=== PATIENT | male | born 1970 | race Caucasian/White ===

== ENCOUNTER 2019-08-09 13:45 | Emergency (ER) | payer MEDICAID, OTHER ==
[2019-08-09 15:57] VITALS: BP 152/92
--- NOTE | 2019-08-09 18:20 | ED ---
Medical Screening - HPI Summary HPI Summary: Patient is a 49-year-old male who presents emergency department for reevaluation of a pelvic fracture and right wrist fracture. Patient states he just returned from [place] where he was visiting his parents. Patient states he believes he was sleepwalking when he fell down a flight of steps. Patient awoke with pelvic pain and right wrist pain. Patient states he was seen in a local hospital and diagnosed with a pubic ramus fracture and right wrist fracture. Patient was admitted admitted and signed out with concerns of covering cost of admission. Patient resides in [place] and presents to the ER for orthopedic referral and pain medication. Patient denies fever, chills, chest pain, shortness of breath, numbness, tingling or weakness. Symptoms are mild in severity. Movement makes symptoms worse. Nothing makes symptoms better. Patient has discharge packet from [facility] with him in the ER today including imaging reports and CT disc. - History of Current Complaint Chief Complaint: EDGeneral Stated Complaint: RECHECK INJURYS PER PT Time Seen by Provider: 08/09/19 14:59 PMH/Surg Hx/FS Hx/Imm Hx Previously Healthy: Yes Endocrine/Hematology History: Denies: Hx Anticoagulant Therapy Infectious Disease History: No Infectious Disease History: Denies: Traveled Outside the [place] in Last 30 Days - Family History Known Family History: Positive: Non-Contributory - Social History Occupation: Employed Full-time Lives: With Family Alcohol Use: Daily Alcohol Amount: "SMALL AMOUNTS DAILY" PT STATES Substance Use Type: Reports: None Smoking Status (MU): Current Every Day Smoker Review of Systems Constitutional: Negative Cardiovascular: Negative Negative: Chest Pain Respiratory: Negative Negative: Shortness Of Breath Gastrointestinal: Negative Negative: Abdominal Pain Positive: Other - right wrist and pelvic pain Neurological: Negative All Other Systems Reviewed And Are Negative: Yes Physical Exam Triage Information Reviewed: Yes Vital Signs On Initial Exam: Initial Vitals Temp Pulse Resp BP Pulse Ox 99.5 F 95 16 139/101 97 08/09/19 13:49 08/09/19 13:49 08/09/19 13:49 08/09/19 13:49 08/09/19 13:49 Vital Signs Reviewed: Yes Appearance: Positive: Well-Appearing - Pt. sitting on chair in NAD> Skin: Positive: Warm, Dry Head/Face: Positive: Normal Head/Face Inspection Eyes: Positive: Normal, EOMI Neck: Positive: Supple Respiratory/Lung Sounds: Positive: Clear to Auscultation, Breath Sounds Present Cardiovascular: Positive: Normal, RRR Musculoskeletal: Positive: Other - Cast on right wrist. Neurological: Positive: Normal, CN Intact II-III Psychiatric: Positive: Affect/Mood Appropriate Diagnostics - Vital Signs Vital Signs Temp Pulse Resp BP Pulse Ox 08/09/19 15:53 98.2 F 92 19 152/92 95 08/09/19 13:49 99.5 F 95 16 139/101 97 - Laboratory Lab Statement: Any lab studies that have been ordered have been reviewed, and results considered in the medical decision making process. Course/Dx - Course Course Of Treatment: Patient with right radial fracture and pubic ramus fracture according to recent hospitalization reports. [employer] reviewed and no red flags noted. Patient given a prescription for hydrocodone. To call the orthopedic clinic tomorrow for a close follow-up appointment. To return to the ER symptoms change or worsen. Patient understands and agrees with plan. - Diagnoses Provider Diagnoses: Forearm fracture, Pubic ramus fracture Discharge ED - Sign-Out/Discharge Documenting (check all that apply): Patient Departure Patient Received Moderate/Deep Sedation with Procedure: No - Discharge Plan Condition: Good Disposition: HOME Prescriptions: Hydrocodone/Acetaminophen [Hydrocodone/Acetaminophen 5-325 mg] 1 tab PO Q6H #12 tab MDD 4 Patient Education Materials: Arm Fracture in Adults (ED), Pelvic Fracture (ED) Forms: *Work Release Referrals: Fadumo Michael MD [Medical Doctor] - Additional Instructions: Call the orthopedic clinic tomorrow morning for a close follow up appointment Pain medication as directed Use crutches Ice and elevate Return to ER if symptoms change or worsen - Billing Disposition and Condition Condition: GOOD Disposition: Home
== END 2019-08-09 15:52 | disposition home or self-care (01) ==
LOC: ED 13:45
DX: S52.91XA Unspecified fracture of right forearm, initial encounter for closed fracture (principal); S32.599A Other specified fracture of unspecified pubis, initial encounter for closed fracture; X58.XXXA Exposure to other specified factors, initial encounter; Y92.9 Unspecified place or not applicable; F17.200 Nicotine dependence, unspecified, uncomplicated
CPT/HCPCS: 99282